=== PATIENT | female | born 1970 | race Caucasian/White ===

== ENCOUNTER 2024-06-27 06:54 | Day surgery (SDC) | payer BC, OTHER ==
[2024-06-27] MEDS: Lactated Ringers 1,000 ML IV SCH (07:14)
[2024-06-27] MEDS ORDERED: Propofol 200 MG/20 ML SDV ONE ×2 (07:39→08:49)
[2024-06-27] MEDS ORDERED: fentaNYL 100 MCG/2 ML SDV ONE (07:39)
[2024-06-27 09:31] VITALS: BP 110/68; PULSE 65
== END 2024-06-27 10:20 | disposition home or self-care (01) ==
LOC: VM.SDS 06:54
PROVIDERS: ATTEND Student in an Organized Health Care Education/Training Program
DX: Z12.11 Encounter for screening for malignant neoplasm of colon (principal); Z80.0 Family history of malignant neoplasm of digestive organs
CPT/HCPCS: J2704; J3010; J7120